=== PATIENT | female | born 1985 | race Caucasian/White ===

== ENCOUNTER 2018-01-09 09:51 | Emergency (ER) | END 2018-01-09 12:25 | disposition home or self-care (01) ==

== ENCOUNTER 2018-10-02 09:40 | Emergency (ER) | payer MEDICAID ==
[~2018-10-02] VITALS: Ht 157.5 cm; Wt 92.9 kg
[~2018-10-02 09:40] MED LIST: ACET500C5 PO; NITR-58 PO
[2018-10-02 09:56] VITALS: Ht 157.5 cm; Wt 92.9 kg
[2018-10-02] MEDS ORDERED: PNV-4 PO (13:26)
--- NOTE | 2018-10-02 13:28 | ERD ---
ER Documentation Chief Complaint Chief Complaint VAGINAL SPOTTING STARING LAST NIGHT; 5WKS HPI 33-year-old female presents with some vaginal spotting since last night. She checked a home test was positive. Her last menstrual period was approximately 2-1/2 weeks ago. She is usually regular. She is a G5 para 3 if today. She denies any abdominal pain, vomiting, fevers, additional symptoms. ROS All systems reviewed and are negative except as per history of present illness. Medications Home Meds Active Scripts Pnv No.95/Ferrous Fum/Folic AC ( Multivitamin Tablet) 1 Each Tablet, 1 EACH PO q day, #100 TAB Prov:RADHA PRATT MD 10/02/18 Nitrofurantoin Monohyd Macrocr* (Macrobid*) 100 Mg Capsr, 100 MG PO BID for 7 Days, CAP Prov:ABDIAS MUNROE PA-C 01/09/18 Acetaminophen* (Tylophen*) 500 Mg Capsule, 1 CAP PO Q6H PRN for PAIN AND OR ELEVATED TEMP, #30 CAP Prov:ABDIAS MUNROE PA-C 01/09/18 Allergies Allergies: Coded Allergies: No Known Allergy (Unverified , 01/09/18) PMhx/Soc Medical and Surgical Hx: pt denies Medical Hx, pt denies Surgical Hx Hx Alcohol Use: No Hx Substance Use: No Hx Tobacco Use: No Smoking Status: Never smoker FmHx Family History: No diabetes, No coronary disease, No other Physical Exam Vitals Vital Signs Date Temp Pulse Resp B/P (MAP) Pulse Ox O2 O2 Flow FiO2 Time Delivery Rate 10/02/18 98.2 64 16 144/72 97 09:56 (96) Physical Exam Const: No acute distress Head: Atraumatic Eyes: Normal Conjunctiva ENT: Normal External Ears, Nose and Mouth. Neck: Full range of motion. No meningismus. Resp: Clear to auscultation bilaterally Cardio: Regular rate and rhythm, no murmurs Abd: Soft, non tender, non distended. Normal bowel sounds Skin: No petechiae or rashes Back: No midline or flank tenderness Ext: No cyanosis, or edema Neur: Awake and alert Psych: Normal Mood and Affect Result Diagram: 10/02/18 1148 Results 24 hrs Laboratory Tests Test 10/02/18 11:32 10/02/18 11:39 10/02/18 11:48 POC Beta HCG, Qualitative POSITIVE Bedside Urine pH (LAB) 7.0 Bedside Urine Protein (LAB) Negative Bedside Urine Glucose (UA) Negative Bedside Urine Ketones (LAB) Negative Bedside Urine Blood Trace-intact Bedside Urine Nitrite (LAB) Negative Bedside Urine Leukocyte Esterase Negative (L White Blood Count 9.2 10^3/ul Red Blood Count 5.01 10^6/ul Hemoglobin 14.5 g/dl Hematocrit 42.5 % Mean Corpuscular Volume 84.8 fl Mean Corpuscular Hemoglobin 28.9 pg Mean Corpuscular 34.1 g/dl Hemoglobin Concent Red Cell Distribution Width 13.2 % Platelet Count 307 10^3/UL Mean Platelet Volume 9.6 fl Immature Granulocytes % 0.300 % Neutrophils % 57.8 % Lymphocytes % 33.9 % Monocytes % 5.9 % Eosinophils % 1.7 % Basophils % 0.4 % Nucleated Red Blood Cells % 0.0 /100WBC Immature Granulocytes # 0.030 10^3/ul Neutrophils # 5.3 10^3/ul Lymphocytes # 3.1 10^3/ul Monocytes # 0.5 10^3/ul Eosinophils # 0.2 10^3/ul Basophils # 0.0 10^3/ul Nucleated Red Blood Cells # 0.0 10^3/ul Urine Color YELLOW Urine Clarity CLEAR Urine pH 8.0 Urine Specific [place] 1.005 Urine Ketones NEGATIVE mg/dL Urine Nitrite NEGATIVE mg/dL Urine Bilirubin NEGATIVE mg/dL Urine Urobilinogen NEGATIVE mg/dL Urine Leukocyte Esterase NEGATIVE Bekah/ul Urine Microscopic RBC 1 /HPF Urine Microscopic WBC 1 /HPF Urine Bacteria FEW /HPF Urine Hemoglobin 1+ mg/dL Urine Glucose NEGATIVE mg/dL Urine Total Protein NEGATIVE mg/dl Beta HCG, Quantitative 1685.5 mIU/ml Procedures/MDM Urine hCG is positive. Quantitative hCG 1685. Urine shows no signs of infection. CBC shows no significant acute abnormalities. Patient is Rh+. Pelvic ultrasound shows a 0.4 cm cystic structure consistent with a gestational sac. There is no visualized pole or yolk sac. There is no additional abnormalities noted. Patient presents with vaginal spotting with identified early . Differential includes early normal , threatened , ectopic . She has no signs or symptoms suggest appendicitis, surgical abdomen. She will be discharged home with recommendations for 2-day re check of hormones to evaluate for developing and to rule out ectopic. She should otherwise return sooner for fevers, worsening pain, bleeding, new worsening symptoms. Departure Diagnosis: Primary Impression: Vaginal bleeding in patient at less than 20 weeks ges... Condition: Stable Patient Instructions: Bleeding During Early Referrals: [facility] [place] [place] [address] [facility] [address] [place] [address] OFFICE FAX , [facility] [address] [place] [address] DR[address] [facility] [address] [place] [address] DR MONCADA, [facility] [address] [facility], [address], [facility] [address] [address] [facility] [address] [place] [address] [facility] [address] [place] [address] [phone] [address] [facility] [address] - [address] RETANA JUSTINE [address], [place] [address] DR ALLISON, CARMELLA [address] [facility]. [address], [place] [address] DR CUELLAR [facility] [address] [place], [place] [id number] Additional Instructions: examen horita tiene embarazo de 5 semanas. cheque otro vez en 2 lobo para cheque pete otro vez para chequiar para ectopico. RADHA PRATT MD Oct 02, 2018 13:28
[2018-10-02 14:08] VITALS: BP 138/76; PULSE 86; RESP 18
== END 2018-10-02 14:08 | disposition home or self-care (01) ==
LOC: FTE 09:40
DX: O20.9 Hemorrhage in early pregnancy, unspecified (principal); Z3A.01 Less than 8 weeks gestation of pregnancy
CPT/HCPCS: 36415; 76801; 76817; 81001; 81025; 84702; 85025; 86900; 86901; Z7502; 81003

== ENCOUNTER 2018-10-05 12:20 | Emergency (ER) | payer MEDICAID ==
[~2018-10-05] VITALS: Ht 160 cm; Wt 100.0 kg
[~2018-10-05 12:20] MED LIST changes: +PNV-4 PO
[2018-10-05 12:29] VITALS: BP 120/76; PULSE 79; RESP 16; Ht 160 cm; Wt 100.0 kg
--- NOTE | 2018-10-05 16:19 | ERD ---
ER Documentation Chief Complaint Chief Complaint pt is bib family for recheck approx 5 wks HPI 33-year-old female presents for recheck on her vaginal bleeding. She was seen 2 days ago and had a visible pole and a quantitative hCG approximately 1600. Bleeding has stopped and she has no pain. She is a G5 para 3. ROS All systems reviewed and are negative except as per history of present illness. Medications Home Meds Active Scripts Pnv No.95/Ferrous Fum/Folic AC ( Multivitamin Tablet) 1 Each Tablet, 1 EACH PO q day, #100 TAB Prov:RADHA PRATT MD 10/02/18 Nitrofurantoin Monohyd Macrocr* (Macrobid*) 100 Mg Capsr, 100 MG PO BID for 7 Days, CAP Prov:ABDIAS MUNROE PA-C 01/09/18 Acetaminophen* (Tylophen*) 500 Mg Capsule, 1 CAP PO Q6H PRN for PAIN AND OR ELEVATED TEMP, #30 CAP Prov:ABDIAS MUNROE PA-C 01/09/18 Allergies Allergies: Coded Allergies: No Known Allergy (Unverified , 01/09/18) PMhx/Soc Medical and Surgical Hx: pt denies Medical Hx, pt denies Surgical Hx Hx Alcohol Use: No Hx Substance Use: No Hx Tobacco Use: No Smoking Status: Never smoker FmHx Family History: No diabetes, No coronary disease, No other Physical Exam Vitals Vital Signs Date Temp Pulse Resp B/P (MAP) Pulse Ox O2 O2 Flow FiO2 Time Delivery Rate 10/05/18 98.3 79 16 120/76 99 12:29 (91) Physical Exam Const: No acute distress Head: Atraumatic Eyes: Normal Conjunctiva ENT: Normal External Ears, Nose and Mouth. Neck: Full range of motion. No meningismus. Resp: Clear to auscultation bilaterally Cardio: Regular rate and rhythm, no murmurs Abd: Soft, non tender, non distended. Normal bowel sounds Skin: No petechiae or rashes Back: No midline or flank tenderness Ext: No cyanosis, or edema Neur: Awake and alert Psych: Normal Mood and Affect Results 24 hrs Laboratory Tests Test 10/05/18 14:35 Beta HCG, Quantitative 1420.9 mIU/ml Procedures/MDM HCG is 1420 today which is lower than 2 days ago. Pelvic ultrasound shows a 5- week 1 day intrauterine cystic structure with a yolk sac. There are no adnexal masses. No appreciable ectopic signs Patient is not ill-appearing without active bleeding. Patient presents with early . She does have a visible yolk sac today although hCGs are decreasing. Concern is for failed . She will discharged home with continued follow-up of hormone levels and return precautions for fevers, pain, bleeding, new worsening symptoms. She is recommended to have additional studies to 3 days. She may follow-up with her OB for this. The patient was stable with no new complaints during the ER course. Clinically, there is no current evidence to suggest meningitis, sepsis, acute abdomen, pneumonia, stroke, acute coronary syndrome, pulmonary embolism, aortic dissection or any other emergent condition appearing to require further evaluation or hospitalization. Patient counseled regarding my diagnostic impression and care plan. Prior to discharge all ques tions answered. Pt agrees with treatment plan and understands strict return precautions. Pt is instructed to follow up with primary care provider within 24- 48 hours. Precautionary instructions provided including instructions to return to the ER if not improving or for any worsening or changing symptoms or concerns. Departure Diagnosis: Primary Impression: Vaginal bleeding before 22 weeks gestation Condition: Stable Patient Instructions: Vaginal Bleed in Referrals: J[facility]AMP OPERATOR [place] [address] [facility] [address] [place], [place] [id number] OFFICE FAX SNADRA GALVANNICA [address] [place], [place] [id number] [address]. MEJÍA TACOMA [address] [place], [place] [id number] GENARO WATERS [address] [facility], [address] [address] [address] [address] [place], [place] [phone] [facility] [address] [place] [address] [facility] [address] - DR RETANA, JUSTINE [address], [place] [address] DR ALLISON, CARMELLA [address] [facility] [address], [place] [address] DR CUELLAR, FARID [address] [place] [address] Additional Instructions: ultrasonido mejor, jackie los hormones no esta cresciendo. Va al lakhani doctor/ specialista para mas evaluacon en el proximo semana. posiblemente necesita autorizado de lakhani doctor primario para specialista. Regresa para fiebre, o mas o nueva simptomas. cheque otro vez 2-3 lobo RADHA PRATT MD Oct 05, 2018 16:19
== END 2018-10-05 16:31 | disposition home or self-care (01) ==
LOC: FTE 12:20
DX: O20.9 Hemorrhage in early pregnancy, unspecified (principal); Z3A.01 Less than 8 weeks gestation of pregnancy
CPT/HCPCS: 36415; 76801; 76817; 84702; Z7502

== ENCOUNTER 2018-10-08 16:19 | Emergency (ER) | payer MEDICAID ==
[~2018-10-08] VITALS: Wt 95.0 kg
--- NOTE | 2018-10-08 17:38 | ERD ---
ER Documentation Chief Complaint Chief Complaint HERE FOR RECHECK OF HORMONES FOR VAG BLEED FOR 1 WK. 5 WKS PREG HPI This is a 33-year-old female who presents ED for recheck on her vaginal bleeding. Patient was seen here 5 days ago for vaginal bleeding and there was a viable pole and a quantitative hCG of 1600. Patient returned 2 days ago to the emergency department and her hCG decreased. Patient is here today to have repeat blood work as well as a possible repeat ultrasound. Patient states that she started having vaginal bleeding again yesterday. Patient is not passing any clots. Denies fever, chills, nausea, vomiting, diarrhea, constipation, vaginal pain, abdominal pain, pelvic pain and all other symptoms. ROS All systems reviewed and are negative except as per history of present illness. Medications Home Meds Active Scripts Pnv No.95/Ferrous Fum/Folic AC ( Multivitamin Tablet) 1 Each Tablet, 1 EACH PO q day, #100 TAB Prov:RADHA PRATT MD 10/02/18 Nitrofurantoin Monohyd Macrocr* (Macrobid*) 100 Mg Capsr, 100 MG PO BID for 7 Days, CAP Prov:ABDIAS MUNROE PA-C 01/09/18 Acetaminophen* (Tylophen*) 500 Mg Capsule, 1 CAP PO Q6H PRN for PAIN AND OR ELEVATED TEMP, #30 CAP Prov:ABDIAS MUNROE PA-C 01/09/18 Allergies Allergies: Coded Allergies: No Known Allergy (Unverified , 01/09/18) PMhx/Soc Medical and Surgical Hx: pt denies Medical Hx, pt denies Surgical Hx Hx Alcohol Use: No Hx Substance Use: No Hx Tobacco Use: No Smoking Status: Never smoker Physical Exam Physical Exam Physical Exam Vitals signs: Reviewed by me. General: Well developed, well nourished, in no acute distress. Patient is awake and alert. Head: Normocephalic, atraumatic. Eyes: Normal conjunctiva, Pupils PERRLA, EOM intact grossly ENT: Pharynx is clear, Moist mucous membranes, external ears, nose and mouth normal Neck: Supple, no masses, lymphadenopathy or JVD Respiratory: Clear to auscultation bilaterally with no wheezing, rhonchi, rales, no distress Cardiovascular: RRR, no murmurs, rubs, or gallops Abdominal: Soft, no peritoneal signs, no rigidity, no surgical abdomen, bowel sounds present all 4 quadrants, nontender light palpation all 4 quadrants, no rebound tenderness, McBurney's point nontender Neurologic: Alert and oriented, moving all extremities, normal speech, no focal weakness, no cerebellar signs. Normal mentation Skin: warm and dry, No rash Psych: Normal mood Results 24 hrs Laboratory Tests Test 10/08/18 17:24 Beta HCG, Quantitative 1214.8 mIU/ml Procedures/MDM EKG, MONITORS, & DIAGNOSTIC IMAGING: [place] [address] Radiology Main Line: [phone] DIAGNOSTIC IMAGING REPORT Patient: ORALIA RIVERA : 1985 Age: 33 Sex: F MR #: [id number] DOS: 10/08/18 1717 Ordering MD: SARIAH CORTES PA-C Location: FTE Room/Bed: PROCEDURE: US OB. CLINICAL INDICATION: . Vaginal bleeding. TECHNIQUE: Multiple sonographic images of the pelvis were obtained. Transabdominal and transvaginal views of the pelvis are available for review. The images were reviewed on a PACS workstation. COMPARISON: No prior studies are available for comparison. FINDINGS: An intrauterine probable early gestational sac at 5.0 mm is identified, corresponding to 5 weeks 2 days size.. There is a 1.2 mm pole less than 5 weeks size without cardiac activity. No subchorionic hemorrhage is identified. The ovaries are unremarkable with color Doppler flow demonstrated. There is no adnexal mass or free fluid. IMPRESSION: Intrauterine sac-like structure at 5 weeks 2 days size with a pole less than 5 weeks size and without heart motion, likely represents an early intrauterine too small to identify a heart beat. No adnexal mass or free fluid to suggest ectopic . RPTAT: HMVK .Jermaine Franco MD, Date Time Electronically viewed and signed by .Jermaine Franco MD, MD on 10/08/2018 18:24 .K/ CC: SARIAH CORTES PA-C [id number] LAB INTERPRETATION: hcg 1214 ER COURSE: The patient was stable throughout ED course. I kept the patient and/or family informed of laboratory and diagnostic imaging results throughout the emergency room course. The patient was promptly evaluated and a treatment plan was devised based on H&P and other data. This plan was discussed with the patient who agreed and had no further questions or concerns prior to discharge. MEDICAL DECISION MAKING: This is a 33-year-old female presents ED for recheck on vaginal bleeding. Patient's hCG today is 1214 which is decreased from hCG 2 days ago which was 1420. Ultrasound today shows a intrauterine sac at roughly 5 weeks 2 days size with a pole less than 5 weeks size and without heart motion which likely could represent an early intrauterine . Given continually decreasing hCG this is likely a failed . Advised patient follow-up with OB specialist in the next 2 days for additional studies. At this time there is no gynecologic emergency. No evidence of meningitis, sepsis, acute abdomen, pneumonia, stroke, acute coronary syndrome, PE, aortic dissection, ectopic , tubo-ovarian abscess, intra-abdominal hemorrhage, ovarian torsion, among others. Patient advised to follow-up with his primary care physician in the next 48 hours. Return to ED with any worsening symptoms. DISPOSITION PLAN: We discussed follow up with the patient's primary care doctor within 24 to 48 hours. Patient counseled regarding my diagnostic impression and care plan. Prior to discharge all questions answered. Pt agrees with treatment plan and understands strict return precautions. Precautionary instructions provided including instructions to return to the ER if not improving or for any worsening or changing symptoms or concerns. SPECIALIST FOLLOW UP RECOMMENDED: obgyn Patient has been advised to follow up with primary care in 1-2 days. Disclaimer: Inadvertent spelling and grammatical errors are likely due to EHR/dictation software use and do not reflect on the overall quality of patient care. Also, please note that the electronic time recorded on this note does not necessarily reflect the actual time of the patient encounter. Departure Diagnosis: Primary Impression: Threatened Condition: Stable Patient Instructions: Possible Miscarriage (Threatened ) Referrals: [facility] OPERATOR REFERRAL LIST Additional Instructions: Paciente aconseja volver a Departamento de urgencias inmediatamente para sntomas nuevos o que empeoran . Paciente aconseja posteriores con el PCP en 1-2 rosales . Paciente verbaliza la comprehensin y est de acuerdo con el tratamiento y el curso de accin. Si el paciente no tiene ninguna de atencin primaria pueden seguir con [facility] [address] [place] [address] o [facility] + [address] [address] SARIAH CORTES PA-C Oct 08, 2018 17:38
[2018-10-08 18:38] VITALS: BP 132/73; PULSE 71; RESP 18
== END 2018-10-08 18:58 | disposition home or self-care (01) ==
LOC: FTE 16:19
DX: O20.0 Threatened abortion (principal); Z3A.01 Less than 8 weeks gestation of pregnancy
CPT/HCPCS: 36415; 76801; 76817; 84702; Z7502

== ENCOUNTER 2018-10-10 15:47 | Emergency (ER) | payer MEDICAID ==
[~2018-10-10] VITALS: Ht 160 cm; Wt 95.2 kg
[2018-10-10 15:58] VITALS: BP 153/73; PULSE 80; Ht 160 cm; Wt 95.2 kg
--- NOTE | 2018-10-10 18:12 | ERD ---
ER Documentation Chief Complaint Chief Complaint SENT BY PCP - NO MOVEMENT- VAGINAL BLEEDING HPI This is a 33-year-old female who is approximately 5 weeks. She was recently told she is having a miscarriage as she is been having vaginal bleeding. She is been here a few times for this over the past week and her beta hCG is decreasing. Bleeding at this time is mild. She is here for follow-up beta-hCG and ultrasound. ROS All systems reviewed and are negative except as per history of present illness. Medications Home Meds Active Scripts Pnv No.95/Ferrous Fum/Folic AC ( Multivitamin Tablet) 1 Each Tablet, 1 EACH PO q day, #100 TAB Prov:RADHA PRATT MD 10/02/18 Nitrofurantoin Monohyd Macrocr* (Macrobid*) 100 Mg Capsr, 100 MG PO BID for 7 Days, CAP Prov:ABDIAS MUNROE PA-C 01/09/18 Acetaminophen* (Tylophen*) 500 Mg Capsule, 1 CAP PO Q6H PRN for PAIN AND OR ELEVATED TEMP, #30 CAP Prov:ABDIAS MUNROE PA-C 01/09/18 Allergies Allergies: Coded Allergies: No Known Allergy (Unverified , 01/09/18) PMhx/Soc Medical and Surgical Hx: pt denies Medical Hx, pt denies Surgical Hx Hx Alcohol Use: No Hx Substance Use: No Hx Tobacco Use: No Smoking Status: Never smoker FmHx Family History: No diabetes Physical Exam Vitals Vital Signs Date Temp Pulse Resp B/P (MAP) Pulse Ox O2 O2 Flow FiO2 Time Delivery Rate 10/10/18 99.1 80 153/73 97 15:58 (99) Physical Exam INITIAL VITAL SIGNS: Reviewed by me GENERAL: Awake, alert and oriented x 4, well appearing, nontoxic, speaking in full sentences. No acute distress HEAD: Atraumatic NECK: Supple. No masses. Full range of motion. No meningismus. No midline tenderness. EYES: EOMI. PERRL. RESPIRATORY: Clear to auscultation bilaterally. Symmetric chest wall rise. No wheezing or rales. No accessory muscle use. CV: Regular rate and rhythm. No murmurs, rubs, or gallops. ABDOMEN: Soft, non-distended. Nontender. Negative [place]. Negative McBurneys point tenderness. No CVA tenderness bilaterally. No guarding. No rebound. : Deffered. Results 24 hrs Laboratory Tests Test 10/10/18 16:54 Urine Color ALVINA Urine Clarity TURBID Urine pH 7.[address] 1.020 Urine Ketones NEGATIVE mg/dL Urine Nitrite NEGATIVE mg/dL Urine Bilirubin NEGATIVE mg/dL Urine Urobilinogen 1+ mg/dL Urine Leukocyte Esterase NEGATIVE Bekah/ul Urine Microscopic RBC > 182 /HPF Urine Microscopic WBC 30 /HPF Urine Squamous Epithelial Cells FEW /HPF Urine Calcium Oxalate Crystals FEW /HPF Urine Amorphous Crystals MANY /HPF Urine Bacteria FEW /HPF Urine Mucus FEW /HPF Urine Hemoglobin 3+ mg/dL Urine Glucose NEGATIVE mg/dL Urine Total Protein 1+ mg/dl Beta HCG, Quantitative 1057.7 mIU/ml Procedures/MDM Beta hCG continues to decrease.ultrasound shows previously seen gestational sac is no longer visualized.The findings likely represent an in progress.Follow-up ultrasound and HCG levels is recommended. No indication for D&C. Copy of ultrasound given that she can follow with primary care. She is to return here in 2-3 days for further evaluation and ultrasound. Patient counseled regarding my diagnostic impression and care plan. Prior to discharge all questions answered. Pt agrees with treatment plan and understands strict return precautions. Pt is instructed to follow up with primary care provider within 24-48 hours. Precautionary instructions provided including instructions to return to the ER if not improving or for any worsening or changing symptoms or concerns. Departure Diagnosis: Primary Impression: Miscarriage Condition: Stable Patient Instructions: Miscarriage Additional Instructions: Llame al doctor ZUNILDA y alexandrea diana ARTEM PARA DENTRO DE 1-2 DAMON.Dgale a la secretaria que nosotros le instruimos hacer esta artem.Avise o llame si lakhani condicin se empeora antes de la artem. Regresa aqui si peor o no mejor. Regrese a estas instalaciones dentro de DOS ZAVALA para un examen de seguimiento.Regrese antes si lakhani condicin se empeora. JAVIER LEVY PA-C Oct 10, 2018 18:12
== END 2018-10-10 18:13 | disposition home or self-care (01) ==
LOC: FTE 15:47
DX: O03.9 Complete or unspecified spontaneous abortion without complication (principal)
CPT/HCPCS: 76801; 76817; 81001; 84702; Z7502

== ENCOUNTER 2019-01-06 16:48 | Emergency (ER) | payer SELFPAY ==
[~2019-01-06] VITALS: Ht 165.1 cm; Wt 90.0 kg
[2019-01-06 16:51] VITALS: Ht 165.1 cm; Wt 90.0 kg
[2019-01-06] MEDS ORDERED: SOD CHLORIDE 0.9% 1,000 ML IV STA (17:04)
[2019-01-06] MEDS ORDERED: ACETAMINOPHEN 325 MG TAB PO STA (17:04)
[2019-01-06] MEDS ORDERED: ONDANSETRON 4 MG INJ IV STA (19:19)
[2019-01-06] MEDS: morphine 4 MG/ML VIAL IV STA ×2 (19:23→21:10)
[2019-01-06] MEDS ORDERED: ACET325T33 PO (20:27)
[2019-01-06] MEDS ORDERED: SOD CHLORIDE 0.9% 1,000 ML IV ONE (21:00)
[2019-01-06 22:09] VITALS: BP 142/82; PULSE 68; RESP 16
--- NOTE | 2019-01-07 00:16 | ERD ---
ER Documentation Chief Complaint Chief Complaint 7 weeks with bleeding HPI This is a pleasant 33-year-old female who is reportedly 7 weeks , last menstrual cycle of 09/30/2018, G3, , presenting to the emergency department complaining of sudden onset vaginal bleeding which began just prior to arrival. She reports some suprapubic cramping which is moderate to severe and constant. She tried no medication for relief of symptoms. She states the symptoms are similar to spontaneous abortions she has experienced in the past. No fevers, chills, nausea, vomiting, diarrhea, abdominal pain, or other symptoms reported currently. ROS All systems reviewed and are negative except as per history of present illness. Medications Home Meds Active Scripts Acetaminophen* (Tylenol*) 325 Mg Tablet, 2 TAB PO Q6 PRN for PAIN AND OR ELEVATED TEMP, #20 TAB Prov:MARIAMA WHITE PA-C 01/06/19 Pnv No.95/Ferrous Fum/Folic AC ( Multivitamin Tablet) 1 Each Tablet, 1 EACH PO q day, #100 TAB Prov:BRANDON MANUEL MD 10/02/18 Nitrofurantoin Monohyd Macrocr* (Macrobid*) 100 Mg Capsr, 100 MG PO BID for 7 Days, CAP Prov:ABDIAS MUNROE PA-C 01/09/18 Acetaminophen* (Tylophen*) 500 Mg Capsule, 1 CAP PO Q6H PRN for PAIN AND OR ELEVATED TEMP, #30 CAP Prov:ABDIAS MUNROE PA-C 01/09/18 Allergies Allergies: Coded Allergies: No Known Allergy (Unverified , 01/09/18) PMhx/Soc Medical and Surgical Hx: pt denies Medical Hx, pt denies Surgical Hx Hx Alcohol Use: No Hx Substance Use: No Hx Tobacco Use: No FmHx Family History: No diabetes Physical Exam Vitals Vital Signs Date Temp Pulse Resp B/P (MAP) Pulse Ox O2 O2 Flow FiO2 Time Delivery Rate 01/06/19 98.2 68 16 142/82 100 Room Air 22:09 (102) 01/06/19 98.1 84 18 154/84 99 16:51 (107) Physical Exam Const: No acute distress Head: Atraumatic Eyes: Normal Conjunctiva ENT: Normal External Ears, Nose and Mouth. Neck: Full range of motion. No meningismus. Resp: Clear to auscultation bilaterally Cardio: Regular rate and rhythm, no murmurs Abd: Soft, non tender, non distended. Normal bowel sounds Pelvic Exam: Actuarial Associate present Abdomen: Nontender External Genitalia: Normal Skin Speculum: Normal vaginal mucosa, normal cervical discharge Bimanual: No adnexal masses or tenderness, No CMT Vagina/Cervix: Multiple blood clots noted in the vaginal vault. The os is closed. Skin: No petechiae or rashes Back: No midline or flank tenderness Ext: No cyanosis, or edema Neur: Awake and alert Psych: Normal Mood and Affect Result Diagram: 01/06/19 1714 01/06/19 1714 Results 24 hrs Laboratory Tests Test 01/06/19 17:14 White Blood Count 12.9 10^3/ul Red Blood Count 4.50 10^6/ul Hemoglobin 13.1 g/dl Hematocrit 37.8 % Mean Corpuscular Volume 84.0 fl Mean Corpuscular Hemoglobin 29.1 pg Mean Corpuscular Hemoglobin Concent 34.7 g/dl Red Cell Distribution Width 12.9 % Platelet Count 252 10^3/UL Mean Platelet Volume 9.7 fl Immature Granulocytes % 0.300 % Neutrophils % 69.8 % Lymphocytes % 23.7 % Monocytes % 4.4 % Eosinophils % 1.4 % Basophils % 0.4 % Nucleated Red Blood Cells % 0.0 /100WBC Immature Granulocytes # 0.040 10^3/ul Neutrophils # 9.0 10^3/ul Lymphocytes # 3.1 10^3/ul Monocytes # 0.6 10^3/ul Eosinophils # 0.2 10^3/ul Basophils # 0.1 10^3/ul Nucleated Red Blood Cells # 0.0 10^3/ul Sodium Level 141 mmol/L Potassium Level 3.6 mmol/L Chloride Level 108 mmol/L Carbon Dioxide Level 22 mmol/L Anion Gap 11 Blood Urea Nitrogen 7 mg/dl Creatinine 0.71 mg/dl Est Glomerular Filtrat Rate mL/min > 60 mL/min Glucose Level 100 mg/dl Calcium Level 9.4 mg/dl Total Bilirubin 0.5 mg/dl Direct Bilirubin 0.00 mg/dl Indirect Bilirubin 0.5 mg/dl Aspartate Amino Transf (AST/SGOT) 22 IU/L Alanine Aminotransferase (ALT/SGPT) 22 IU/L Alkaline Phosphatase 60 IU/L Total Protein 7.5 g/dl Albumin 4.2 g/dl Globulin 3.30 g/dl Albumin/Globulin Ratio 1.27 Beta HCG, Quantitative 34128.0 mIU/ml Current Medications Medications Dose Sig/Miles Start Time Status Last (Trade) Ordered Route PRN Stop Time Admin Dose Reason Admin Sodium 1,000 ml @ Q1H STAT 01/06/19 DC 01/06/19 Chloride 1,000 mls/hr IV 17:04 17:11 01/06/19 18:03 650 mg ONCE STAT 01/06/19 DC 01/06/19 Acetaminophen PO 17:04 17:12 (Tylenol 01/06/19 17:05 Tab) Morphine 4 mg ONCE STAT 01/06/19 DC 01/06/19 Sulfate IV 19:13 21:10 (morphine) 01/06/19 19:14 Ondansetron 4 mg ONCE STAT 01/06/19 DC 01/06/19 HCl (Zofran IV 19:19 19:26 Inj) 01/06/19 19:20 Sodium 1,000 ml @ Q1H ONCE 01/06/19 DC 01/06/19 Chloride 1,000 mls/hr IV 21:00 21:09 01/06/19 21:59 [place] [address] Radiology Main Line: [phone] DIAGNOSTIC IMAGING REPORT Patient: ORALIA RIVERA : 1985 Age: 33 Sex: F MR #: [id number] DOS: 01/06/19 1704 Ordering MD: MARIAMA WHITE PA-C Location: [facility] Room/Bed: PROCEDURE: US Pelvis. CLINICAL INDICATION: Vaginal bleeding. TECHNIQUE: Multiple sonographic images of the pelvis were obtained utilizing a transabdominal and endovaginal technique. The images were reviewed on a PACS workstation. COMPARISON: 10/10/2018 FINDINGS: Uterus: Normal in size, contour and echogenicity with no evidence for myometrial masses. Size is not measured by the corn grinder Cervix: Eccentrically located gestational sac and embryonic pole consistent with a spontaneous (miscarriage) in progress Endometrium: Normal in thickness; 5.8 mm. Again, the instrument gestation is eccentrically located in the cervix. No embryonic heart rate is detected Right ovary / adnexa: Normal in size estimated at 3.8 x 2.3 x 1.8 cm. No jasson dence for masses, normal blood flow on Doppler interrogation. Left ovary/adnexa: Normal in size estimated at 3.8 x 2.9 x 1.6 cm. No evidence for solid masses, normal blood flow on Doppler interrogation. Cul-de-sac: No evidence of free fluid. RPTAT:HJJR IMPRESSION: 1. Eccentrically located gestational sac and embryonic pole within the cervix most consistent with a spontaneous in progress without detectable embryonic heart rate, the gestational age not measured or calculated by the corn grinder but grossly less than 6 weeks. 2. Unremarkable ovaries and adnexa. Sam Montague Physician Date Time Electronically viewed and signed by Sam Montague Physician on 01/06/2019 19:02 JR/ CC: MARIAMA WHITE PA-C [id number] [place] [address] Radiology Main Line: [phone] DIAGNOSTIC IMAGING REPORT Patient: ORALIA RIVERA : 1985 Age: 33 Sex: F MR #: [id number] DOS: 01/06/192051 Ordering MD: MARIAMA WHITE PA-C Location: [facility] Room/Bed: PROCEDURE: US OB. CLINICAL INDICATION: Vaginal bleeding in early . TECHNIQUE: Transabdominal and transvaginal views of the pelvis are available for review. COMPARISON: Earlier study same date FINDINGS: There is a fluid collection in the endometrial canal. The shape is irregular. Gestational membranes seen on the earlier ultrasound are no longer visible. The fundal endometrium is heterogeneous and may contain thrombus IMPRESSION: 1. Spontaneous in progress. RPTAT:AAJJ Tierra Sen, Physician Date Time Electronically viewed and signed by Tierra Sen Physician on 01/06/2019 21:45 GW/ CC: WHITEMARIAMA HENRY [place] [id number] Procedures/MDM 33-year-old female presented to the emergency department with signs and symptoms most consistent with spontaneous . Initial ultrasound in the department showed an eccentrically located gestational sac. Repeat ultrasound showed a spontaneous in progress. [place] [address] which will need to be repeated in approximately 2 to 3 days. Multiple blood clots from the vaginal vault were removed by myself and attending ED physician, Dr. Brandon Manuel, and the patient tolerated the procedure well. Patient was feeling significantly improved after blood clots were removed. CBC showed no evidence of significant leukocytosis or anemia. Patient was stable and appropriate for discharge and further outpatient management. No evidence to suggest ectopic , tubo- ovarian abscess, ovarian torsion, PID, or other emergencies. Patient was a dvised to have 24 to 48-hour follow-up with her [employer]IL [employer] physician and return here immediately for any new or worsening or concerning symptoms. She understands and agrees with the plan. Patient's blood pressure was elevated (>120/80) but appears stable without evidence of hypertension emergency or urgency. The patient is to follow-up and pursue outpatient monitoring and therapy with their primary care physician within 1 week and return immediately if they have any new, worsening, or concerning symptoms. Departure Diagnosis: Primary Impression: Spontaneous Condition: Fair Patient Instructions: Miscarriage, Spontaneous (Completed) [facility] Usted se ohara hecho un examen mdico de control que le indica que no est en diana condicin que requiera tratamiento urgente en el Departamento de Emergencia. Un estudio ms profundo y el tratamiento de cochran condicin pueden esperar sin ningn riesgo hasta que usted sea atendida/o en el consultorio de cochran mdico o diana clnica. Es responsabilidad suya arreglar diana gerry para el seguimiento del jessica. MANEJO DE CONDICIONES NO URGENTES EN EL FUTURO 1) Si usted tiene un mdico de atencin primaria: Usted debera llamar a cochran mdico de atencin primaria antes de venir al departamento de emergencia. Despus de las horas de consultorio, cochran doctor o cochran asociado/a est disponible por telfono. El mdico o enfermero de kaitlin en el servicio telefnico puede asesorarle por libby medio para atender el problema, o jessica contrario se puede programar diana gerry. 2) Si usted no tiene un mdico de atencin primaria: Llame al mdico o clnica de referencia que aparece abajo jeremie las horas de consultorio para hacer diana gerry para que le vean. CLINICAS: [facility] [phone] [facility] [phone] [facility]. [facility] [phone] [address] [facility]. [facility] [phone] [facility]. [place] [phone] [facility]. [phone] [employer] [place] [address] [facility] [address] [place], [place] [phone] OFFICE FAX MELVINA GALVAN [address] [place] [address] [address] [address] [place], [place] [phone] PATRICIA WATERSDANIELITO [address] [facility], [address] [address] KALANI [address]ANTOJA [address] [place], [place] [id number] [facility] [address] [place], [place] [phone] [facility], [facility] [address] - [address] RETANA, JUSTINE [address], [facility] [address] [address] ALLISON, CARMELLA [address] [facility]. [address], [facility] [address] [address] CUELLAR, FARMI [address] [place] [address] Additional Instructions: Specialist:Usted tiene diana condicin mdica que requiere que danielle a un especialista dentro de los prximos 1-2 rosales.POR FAVOR,CON COCHRAN SEGUIMIENTO DE PRIMARIA PHSICIAN refferal. SI USTED NO TIENE UN MDICO GENERAL Y / O USTED NO PUEDE PAGAR sean a un mdico,los siguientes hernández RECURSOS sido suministrado a usted. ES COCHRAN RESPONSABILIDAD PARA SER VISTOS POR EL ESPECIALISTA: MARIAMA XIONG PA-C Jan 07, 2019 00:16
== END 2019-01-06 22:11 | disposition home or self-care (01) ==
LOC: FTE 16:48
DX: O03.9 Complete or unspecified spontaneous abortion without complication (principal)
CPT/HCPCS: 76801; 76817; 80053; 84702; 85025; 86900; 86901; J2270; J2405; J7030